=== PATIENT | female | born 1965 | race Caucasian/White ===

== ENCOUNTER 2023-10-01 15:29 | Inpatient (IN) | payer OTHER ==
[~2023-10-01] VITALS: Ht 165.1 cm; Wt 57.2 kg
[2023-10-01] MEDS ORDERED: HYDROMORPHONE 2 MG/1 ML DISP.SYRIN ONE ×2 (15:56→18:13)
[2023-10-01] MEDS ORDERED: PROCHLORPERAZINE EDISYLATE 10 MG/2 ML VIAL ONE (15:56)
[2023-10-01] MEDS: HYDROMORPHONE 1 MG/1 ML DISP.SYRIN IV ONE ×2 (16:03→18:16)
[2023-10-01] MEDS: PROCHLORPERAZINE EDISYLATE 10 MG/2 ML VIAL IV ONE (16:03)
[2023-10-01] MEDS: IV NORMAL SALINE 1000 ML BAG IV ONE (16:04)
[2023-10-01] MEDS ORDERED: OXYC15TA2 PO (16:09)
[2023-10-01] MEDS ORDERED: INFL100V IV (16:09)
[2023-10-01] MEDS ORDERED: PRED2.5T PO (16:09)
[2023-10-01 16:16] LABS: ALBUMIN 4.1 g/dL (3.4-5.0); BILIRUBIN,DIRECT 0.2 mg/dL (0.0-0.2); BILIRUBIN,TOTAL 0.5 mg/dL (0.2-1.0); CALCIUM 10.1 mg/dL (8.5-10.1); CREATININE 1.3 mg/dL (0.6-1.3); POTASSIUM 3.7 mmol/L (3.5-5.1); TOTAL PROTEIN, SERUM 8.3 g/dL (6.4-8.2)
[2023-10-01 16:27] LABS: LACTIC ACID 3.5 mmol/L (0.4-2.0)
[2023-10-01 16:28] LABS: BASOPHILS # (AUTO) 0.1 K/UL (0.0-0.2); BASOPHILS % (AUTO) 0.7 % (0.0-2.0); HEMATOCRIT 46.5 % (31.2-41.9); LYMPHOCYTES # (AUTO) 1.6 K/uL (0.8-4.8); LYMPHOCYTES % (AUTO) 10.3 % (20.5-51.5); MEAN CORPUSCULAR HEMOGLOBIN 31.5 uug (24.7-32.8); MEAN CORPUSCULAR HGB CONC 34 g/dL (32.3-35.6); MEAN CORPUSCULAR VOLUME 91.5 fL (75.5-95.3); MONOCYTES % (AUTO) 6.3 % (0.0-11.0); NEUTROPHILS # (AUTO) 13.3 K/uL (1.8-8.9); NEUTROPHILS % (AUTO) 82.7 % (38.5-71.5); PLATELET COUNT (AUTO) 273 K/uL (179-408); RED BLOOD CELL COUNT(AUTO) 5.08 MIL/uL (3.63-4.92); RED CELL DISTRIBUTION WIDTH 13.2 % (12.3-17.7)
[2023-10-01 16:30] LABS: DIFFERENTIAL COMMENT 1
[2023-10-01] MEDS: IV NS 1000 ML 1,000 ML IV ONE (17:11)
[2023-10-01 17:15] LABS: *BILIRUBIN,URIN NEGATIVE (NEGATIVE); *CLARITY,URINE CLEAR (CLEAR); *COLOR,URINE YELLOW (YELLOW); *PROTEIN,URINE NEGATIVE (NEGATIVE); *UROBILINOGEN,URINE 0.2 E.U./dl (NORMAL); LEUKOCYTE ESTERASE ,URINE NEGATIVE (NEGATIVE); NITRITE, URINE NEGATIVE (NEGATIVE); PH,URINE 8.5 (5.0-8.0); UGLUCOSE NEGATIVE (NEGATIVE)
[2023-10-01 17:17] LABS: *BLOOD, URINE NEGATIVE (NEGATIVE)
[2023-10-01 17:18] LABS: *KETONES,URINE NEGATIVE (NEGATIVE)
[2023-10-01] MEDS ORDERED: ONDANSETRON 4 MG/2 ML VIAL ONE (18:13)
[2023-10-01] MEDS ORDERED: VANCOMYCIN IV 200 ML ONE (18:14)
[2023-10-01] MEDS: ONDANSETRON 4 MG/2 ML VIAL IV ONE (18:15)
[2023-10-01] MEDS: VANCOMYCIN IV 1,000 MG in IV DEXTROSE 5% 250 ML IV ONE (18:15)
[2023-10-01] MEDS ORDERED: CEFTAZIDIME 1 G VIAL ONE (19:54)
[2023-10-01] MEDS: CEFTAZIDIME 1 G in IV DEXTROSE 5% 50 ML IV ONE (20:27)
[2023-10-01 22:30] VITALS: BP 123/61; TEMP 98.5; O2SAT 97
[2023-10-01] MEDS ORDERED: ACETAMINOPHEN 325 MG TABLET PO PRN (22:45)
[2023-10-01] MEDS ORDERED: ZOLPIDEM 5 MG TABLET PO PRN (22:45)
[2023-10-01] MEDS ORDERED: MAGNESIUM HYDROXIDE 30 ML LIQUID UDC PO PRN (22:45)
[2023-10-01] MEDS ORDERED: REMEDY ESSENTIAL ZINC PASTE 113 GM TP PRN (22:45)
[2023-10-01] MEDS: OXYCODONE HCL 5 MG TABLET PO PRN (23:57)
[2023-10-02] VITALS: BP 116/64; TEMP 98; O2SAT 95
[2023-10-02] MEDS: ONDANSETRON 4 MG/2 ML VIAL IV PRN (00:40)
[2023-10-02 04:16] VITALS: BP 138/72; TEMP 98.5; O2SAT 97
[2023-10-02] MEDS: IV NS 1000 ML 1,000 ML IV PRN (04:50)
[2023-10-02 07:17] LABS: BASOPHILS % (AUTO) 0.5 % (0.0-2.0); HEMATOCRIT 35.9 % (31.2-41.9); HEMOGLOBIN 12.1 g/dL (10.9-14.3); LYMPHOCYTES # (AUTO) 3.2 K/uL (0.8-4.8); MEAN CORPUSCULAR HEMOGLOBIN 31.1 uug (24.7-32.8); MEAN CORPUSCULAR HGB CONC 34 g/dL (32.3-35.6); MEAN CORPUSCULAR VOLUME 92.2 fL (75.5-95.3); MONOCYTES # (AUTO) 0.8 K/uL (0.1-1.30); MONOCYTES % (AUTO) 10.3 % (0.0-11.0); NEUTROPHILS # (AUTO) 3.4 K/uL (1.8-8.9); NEUTROPHILS % (AUTO) 46.2 % (38.5-71.5); PLATELET COUNT (AUTO) 182 K/uL (179-408); RED BLOOD CELL COUNT(AUTO) 3.89 MIL/uL (3.63-4.92); RED CELL DISTRIBUTION WIDTH 13.5 % (12.3-17.7); WHITE BLOOD COUNT (AUTO) 7.4 K/uL (3.8-11.8)
[2023-10-02 07:44] LABS: THYROID STIMULATING HORMONE 2.323 mIU/mL (0.358-3.740)
[2023-10-02 07:47] LABS: ALBUMIN 2.8 g/dL (3.4-5.0); BILIRUBIN,DIRECT 0.2 mg/dL (0.0-0.2); BILIRUBIN,TOTAL 0.4 mg/dL (0.2-1.0); CALCIUM 7.5 mg/dL (8.5-10.1); CREATININE 0.9 mg/dL (0.6-1.3); MAGNESIUM 1.8 mg/dL (1.8-2.4); PHOSPHOROUS 2.6 mg/dL (2.5-4.9); POTASSIUM 3.2 mmol/L (3.5-5.1); TOTAL PROTEIN, SERUM 5.8 g/dL (6.4-8.2)
[2023-10-02 07:58] LABS: DIFFERENTIAL COMMENT 1
[2023-10-02 08:00] VITALS: BP 143/71; TEMP 98.2; O2SAT 98
[2023-10-02] MEDS: PANTOPRAZOLE SODIUM 40 MG VIAL IV SCH (09:14)
[2023-10-02] MEDS: ENOXAPARIN SODIUM 40 MG/0.4 ML DISP.SYRIN SQ SCH (09:18)
[2023-10-02 09:59] LABS: ERYTHROCYTE SEDIMENTATION RATE 14 MM/HR (0-20)
[2023-10-02] MEDS: CEFTAZIDIME 1 G in IV DEXTROSE 5% 50 ML IV SCH (10:31)
[2023-10-02 12:00] VITALS: BP 158/82; TEMP 97.6; O2SAT 98
[2023-10-02] MEDS: POTASSIUM CHLORIDE 20 MEQ TAB.PRT.SR PO ONE (14:25)
[2023-10-02 16:00] VITALS: BP 127/68; TEMP 97.8; O2SAT 97
[2023-10-02] MEDS ORDERED: CAPLYTA 42 MG PO (16:10)
[2023-10-02] MEDS ORDERED: TRAZ-257 PO (16:10)
[2023-10-02] MEDS ORDERED: HYDR200T4 PO (16:10)
[2023-10-02] MEDS ORDERED: LAMO200T10 PO (16:10)
[2023-10-02] MEDS ORDERED: CALC-959 PO (16:10)
[2023-10-02] MEDS ORDERED: ALEN70TA80 PO (16:10)
[2023-10-02] MEDS ORDERED: FLUV100T3 PO (16:10)
[2023-10-02] MEDS ORDERED: OMEP40CA21 PO (16:10)
[2023-10-02] MEDS ORDERED: LORA-114 PO (16:10)
[2023-10-02] MEDS ORDERED: PRED-170 PO (16:10)
[2023-10-02] MEDS ORDERED: TIZA4TAB5 PO (16:12)
[2023-10-02] MEDS ORDERED: TIZANIDINE HCL 4 MG TABLET PO PRN (16:30)
[2023-10-02] MEDS: HYDROMORPHONE 2 MG/1 ML DISP.SYRIN IV PRN (17:10)
[2023-10-02 20:30] VITALS: BP 159/72; TEMP 98.3; O2SAT 100
[2023-10-02] MEDS: TRAZODONE 100 MG TABLET PO SCH (20:49)
[2023-10-02] MEDS: LORATADINE 10 MG TABLET PO SCH (20:49)
[2023-10-02] MEDS: LAMOTRIGINE 200 MG TABLET PO SCH (20:51)
[2023-10-03 06:00] VITALS: BP 137/67; TEMP 98.4; O2SAT 100
[2023-10-03] MEDS ORDERED: MAG HYDROX/AL HYDROX/SIMETH 30 ML LIQUID UDC PO PRN (07:00)
[2023-10-03 07:07] LABS: BASOPHILS % (AUTO) 0.7 % (0.0-2.0); HEMATOCRIT 36.4 % (31.2-41.9); HEMOGLOBIN 12.4 g/dL (10.9-14.3); LYMPHOCYTES # (AUTO) 3.5 K/uL (0.8-4.8); LYMPHOCYTES % (AUTO) 55.2 % (20.5-51.5); MEAN CORPUSCULAR HEMOGLOBIN 31.3 uug (24.7-32.8); MEAN CORPUSCULAR HGB CONC 34 g/dL (32.3-35.6); MONOCYTES # (AUTO) 0.7 K/uL (0.1-1.30); MONOCYTES % (AUTO) 11.3 % (0.0-11.0); NEUTROPHILS # (AUTO) 2.1 K/uL (1.8-8.9); NEUTROPHILS % (AUTO) 32.8 % (38.5-71.5); PLATELET COUNT (AUTO) 163 K/uL (179-408); RED BLOOD CELL COUNT(AUTO) 3.96 MIL/uL (3.63-4.92); RED CELL DISTRIBUTION WIDTH 13.4 % (12.3-17.7); WHITE BLOOD COUNT (AUTO) 6.3 K/uL (3.8-11.8)
[2023-10-03 07:22] LABS: ALBUMIN 2.8 g/dL (3.4-5.0); BILIRUBIN,TOTAL 0.5 mg/dL (0.2-1.0); CREATININE 0.8 mg/dL (0.6-1.3); MAGNESIUM 1.9 mg/dL (1.8-2.4); POTASSIUM 3.7 mmol/L (3.5-5.1); TOTAL PROTEIN, SERUM 5.9 g/dL (6.4-8.2)
[2023-10-03 07:32] LABS: DIFFERENTIAL COMMENT 1
[2023-10-03] MEDS ORDERED: VANCOMYCIN IV 1,000 MG in IV DEXTROSE 5% 250 ML IV SCH (08:00)
[2023-10-03] MEDS: CALCIUM CARB/VITAMIN D 600-400 MG TABLET PO SCH (09:04)
[2023-10-03] MEDS: predniSONE 5 MG TABLET PO SCH (09:05)
[2023-10-03] MEDS: HYDROXYCHLOROQUINE SULFATE 200 MG TABLET PO SCH (09:07)
[2023-10-03] MEDS ORDERED: METR500T PO (11:37)
[2023-10-03] MEDS ORDERED: CIPR500S2 PO (11:37)
[2023-10-03 11:53] VITALS: BP 149/70; TEMP 98.5; O2SAT 98
[2023-10-03 16:22] VITALS: BP 152/79; TEMP 98; O2SAT 9
[2023-10-03 20:00] VITALS: BP 137/74; TEMP 98.7; O2SAT 96
[2023-10-04 06:00] VITALS: BP 146/80; TEMP 98.2; O2SAT 96
[2023-10-04 12:00] VITALS: BP 135/70; TEMP 98.3; O2SAT 96
[2023-10-05] MEDS ORDERED: ONDA4TAB11 PO (16:32)
== END 2023-10-04 13:30 | disposition home or self-care (01) | DRG 720 ==
LOC: ER 15:32 → TELE3 21:24 → MEDSURG3 10-02 15:40
PROVIDERS: ADMIT Nurse Practitioner Acute Care; ATTEND Internal Medicine
DX: A41.9 Sepsis, unspecified organism (principal); N17.0 Acute kidney failure with tubular necrosis; E87.20 Acidosis, unspecified; A04.9 Bacterial intestinal infection, unspecified; E86.0 Dehydration; M06.9 Rheumatoid arthritis, unspecified; Z90.49 Acquired absence of other specified parts of digestive tract; R94.8 Abnormal results of function studies of other organs and systems; E87.6 Hypokalemia; Z90.710 Acquired absence of both cervix and uterus; K50.90 Crohn's disease, unspecified, without complications; J45.909 Unspecified asthma, uncomplicated; F17.210 Nicotine dependence, cigarettes, uncomplicated; Z88.0 Allergy status to penicillin; M45.9 Ankylosing spondylitis of unspecified sites in spine; Z79.52 Long term (current) use of systemic steroids; Z79.899 Other long term (current) drug therapy; Z79.620 Long term (current) use of immunosuppressive biologic; Q43.8 Other specified congenital malformations of intestine
CPT/HCPCS: 36415; 71045; 74150; 83605; 83690; 83735; 84100; 84443; 84484; 85025; 85651; 85730; 87040; 93005; A4606; A4663; C9113; G0378; J0713; J0780; J1170; J1650; J2405; J3370; J7040; J7050; J7512

== ENCOUNTER 2023-10-05 12:57 | Emergency (ER) | payer OTHER ==
[~2023-10-05] VITALS: Ht 157.5 cm; Wt 54.4 kg
[~2023-10-05 12:57] MED LIST: ALEN70TA80 PO; CALC-959 PO; CAPLYTA 42 MG PO; CIPR500S2 PO; FLUV100T3 PO; HYDR200T4 PO; INFL100V IV; LAMO200T10 PO; LORA-114 PO; METR500T PO; OMEP40CA21 PO; OXYC15TA2 PO; PRED-170 PO; PRED2.5T PO; TIZA4TAB5 PO; TRAZ-257 PO
[2023-10-05] MEDS: IV NORMAL SALINE 1000 ML BAG IV ONE ×2 (13:21→14:59)
[2023-10-05 13:37] LABS: BASOPHILS # (AUTO) 0.1 K/UL (0.0-0.2); BASOPHILS % (AUTO) 0.8 % (0.0-2.0); HEMATOCRIT 45.3 % (31.2-41.9); HEMOGLOBIN 15.4 g/dL (10.9-14.3); LYMPHOCYTES # (AUTO) 1.8 K/uL (0.8-4.8); LYMPHOCYTES % (AUTO) 26.8 % (20.5-51.5); MEAN CORPUSCULAR HEMOGLOBIN 31.5 uug (24.7-32.8); MEAN CORPUSCULAR HGB CONC 34 g/dL (32.3-35.6); MEAN CORPUSCULAR VOLUME 92.6 fL (75.5-95.3); MONOCYTES # (AUTO) 0.7 K/uL (0.1-1.30); NEUTROPHILS # (AUTO) 4.2 K/uL (1.8-8.9); NEUTROPHILS % (AUTO) 62.4 % (38.5-71.5); PLATELET COUNT (AUTO) 200 K/uL (179-408); RED CELL DISTRIBUTION WIDTH 13.2 % (12.3-17.7); WHITE BLOOD COUNT (AUTO) 6.7 K/uL (3.8-11.8)
[2023-10-05 13:42] LABS: DIFFERENTIAL COMMENT 1
[2023-10-05] MEDS ORDERED: MORPHINE SULFATE 2 MG/1 ML DISP.SYRIN ONE (13:56)
[2023-10-05] MEDS ORDERED: ONDANSETRON 4 MG/2 ML VIAL ONE (13:56)
[2023-10-05 13:57] LABS: ALBUMIN 3.7 g/dL (3.4-5.0); BILIRUBIN,DIRECT 0.2 mg/dL (0.0-0.2); BILIRUBIN,TOTAL 0.6 mg/dL (0.2-1.0); CALCIUM 9.2 mg/dL (8.5-10.1); POTASSIUM 3.7 mmol/L (3.5-5.1); TOTAL PROTEIN, SERUM 7.6 g/dL (6.4-8.2)
[2023-10-05] MEDS ORDERED: diphenhydrAMINE 50 MG/1 ML VIAL ONE (14:00)
[2023-10-05] MEDS: ONDANSETRON 4 MG/2 ML VIAL IV ONE (14:03)
[2023-10-05] MEDS: diphenhydrAMINE 50 MG/1 ML VIAL IV ONE (14:04)
[2023-10-05] MEDS: MORPHINE SULFATE 2 MG/1 ML DISP.SYRIN IV ONE (14:04)
[2023-10-05] MEDS: DICYCLOMINE HCL 20 MG/2 ML AMPUL IM STA (15:03)
[2023-10-05] MEDS ORDERED: OXYCODONE/APAP 5-325 MG TABLET ONE (15:16)
[2023-10-05] MEDS ORDERED: METOCLOPRAMIDE HCL 10 MG/2 ML VIAL ONE (15:28)
[2023-10-05] MEDS: METOCLOPRAMIDE HCL 10 MG/2 ML VIAL IV ONE (15:31)
[2023-10-05] MEDS: OXYCODONE/APAP 5-325 MG TABLET PO ONE (15:32)
[2023-10-05] MEDS ORDERED: HYDROMORPHONE 1 MG/1 ML DISP.SYRIN ONE (15:37)
[2023-10-05] MEDS: HYDROMORPHONE 1 MG/1 ML DISP.SYRIN IV ONE (15:39)
[2023-10-05] MEDS ORDERED: ONDA4TAB11 PO (16:32)
[2023-10-05 17:54] VITALS: BP 119/77; O2SAT 96
== END 2023-10-05 17:00 | disposition home or self-care (01) ==
LOC: ER 12:57
DX: G89.29 Other chronic pain (principal); K52.9 Noninfective gastroenteritis and colitis, unspecified; J45.909 Unspecified asthma, uncomplicated; Z79.899 Other long term (current) drug therapy; Z60.2 Problems related to living alone; Z88.0 Allergy status to penicillin
CPT/HCPCS: 99285; 74176; 96374; 96375; 96361; 80076; 80048; 83690; 85025; 36415; 96372; 83605; J0500; J1200; J2765; J2405; J1170; J2270; J7040 ×2; A4606; A4663

== ENCOUNTER 2023-10-16 22:44 | Emergency (ER) | payer OTHER ==
[~2023-10-16] VITALS: Ht 157.5 cm; Wt 54.4 kg
[~2023-10-16 22:44] MED LIST changes: +ONDA4TAB11 PO; -PRED2.5T PO
[2023-10-17 00:35] LABS: *BILIRUBIN,URIN NEGATIVE (NEGATIVE); *BLOOD, URINE NEGATIVE (NEGATIVE); *CLARITY,URINE CLEAR (CLEAR); *COLOR,URINE YELLOW (YELLOW); *KETONES,URINE NEGATIVE (NEGATIVE); *PROTEIN,URINE NEGATIVE (NEGATIVE); *UROBILINOGEN,URINE 0.2 E.U./dl (NORMAL); LEUKOCYTE ESTERASE ,URINE NEGATIVE (NEGATIVE); NITRITE, URINE NEGATIVE (NEGATIVE); PH,URINE 7.5 (5.0-8.0); UGLUCOSE NEGATIVE (NEGATIVE)
[2023-10-17 02:21] LABS: BASOPHILS % (AUTO) 0.2 % (0.0-2.0); HEMATOCRIT 40.4 % (31.2-41.9); HEMOGLOBIN 13.8 g/dL (10.9-14.3); LYMPHOCYTES # (AUTO) 2.8 K/uL (0.8-4.8); LYMPHOCYTES % (AUTO) 36.4 % (20.5-51.5); MEAN CORPUSCULAR HEMOGLOBIN 31.6 uug (24.7-32.8); MEAN CORPUSCULAR HGB CONC 34 g/dL (32.3-35.6); MEAN CORPUSCULAR VOLUME 92.5 fL (75.5-95.3); MONOCYTES # (AUTO) 0.7 K/uL (0.1-1.30); MONOCYTES % (AUTO) 9.7 % (0.0-11.0); NEUTROPHILS # (AUTO) 4.1 K/uL (1.8-8.9); NEUTROPHILS % (AUTO) 53.7 % (38.5-71.5); PLATELET COUNT (AUTO) 283 K/uL (179-408); RED BLOOD CELL COUNT(AUTO) 4.37 MIL/uL (3.63-4.92); RED CELL DISTRIBUTION WIDTH 14.2 % (12.3-17.7); WHITE BLOOD COUNT (AUTO) 7.7 K/uL (3.8-11.8)
[2023-10-17] MEDS ORDERED: METOCLOPRAMIDE HCL 10 MG/2 ML VIAL ONE (02:23)
[2023-10-17] MEDS ORDERED: KETOROLAC TROMETHAMINE 15 MG INJ ONE (02:23)
[2023-10-17] MEDS: KETOROLAC TROMETHAMINE 15 MG INJ IVP ONE (02:30)
[2023-10-17] MEDS: METOCLOPRAMIDE HCL 10 MG/2 ML VIAL IV ONE (02:49)
[2023-10-17 02:51] LABS: DIFFERENTIAL COMMENT 1
[2023-10-17 02:57] LABS: CALCIUM 8.9 mg/dL (8.5-10.1); CREATININE 1.2 mg/dL (0.6-1.3); POTASSIUM 5.2 mmol/L (3.5-5.1)
[2023-10-17 03:03] LABS: ALBUMIN 3.5 g/dL (3.4-5.0); BILIRUBIN,DIRECT 0.1 mg/dL (0.0-0.2); BILIRUBIN,TOTAL 0.3 mg/dL (0.2-1.0); TOTAL PROTEIN, SERUM 7.4 g/dL (6.4-8.2)
[2023-10-17] MEDS ORDERED: SWABABLE VALVE TRANSFER SET EA MC ONE (03:59)
[2023-10-17] MEDS ORDERED: IOHEXOL 300MG/ML 100 ML INFUS..BTL ONE (03:59)
[2023-10-17] MEDS ORDERED: IV NORMAL SALINE 250 ML IV ONE (04:01)
[2023-10-17] MEDS ORDERED: HYDROMORPHONE 1 MG/1 ML DISP.SYRIN ONE (05:40)
[2023-10-17] MEDS ORDERED: ONDANSETRON 4 MG/2 ML VIAL ONE ×2 (05:40→09:13)
[2023-10-17] MEDS: HYDROMORPHONE 1 MG/1 ML DISP.SYRIN IV ONE (05:45)
[2023-10-17] MEDS: ONDANSETRON 4 MG/2 ML VIAL IV ONE ×2 (05:45→09:24)
[2023-10-17] MEDS ORDERED: MORPHINE SULFATE 4 MG/1 ML DISP.SYRIN ONE (09:14)
[2023-10-17] MEDS: IV NORMAL SALINE 1000 ML BAG IV ONE (09:24)
[2023-10-17] MEDS: MORPHINE SULFATE 4 MG/1 ML DISP.SYRIN IV ONE (09:24)
[2023-10-17] MEDS ORDERED: ONDA4TAB5 PO (11:27)
[2023-10-17 11:38] VITALS: BP 122/80; TEMP 98; O2SAT 99
== END 2023-10-17 11:38 | disposition home or self-care (01) ==
LOC: ER 22:45
DX: G89.29 Other chronic pain (principal); K52.89 Other specified noninfective gastroenteritis and colitis; J45.909 Unspecified asthma, uncomplicated; Z79.899 Other long term (current) drug therapy; Z88.0 Allergy status to penicillin
CPT/HCPCS: 99285; 74177; 96374; 96375; 71045; 96361; 80076; 80048; 81003; 83690; 85025; 85730; 36415; 93005; 96376; J1885; J2765; J2405 ×2; Q9967; J1170; J2270; J7040; A4606; A4663